=== PATIENT | female | born 1955 | race Two or more races ===

== ENCOUNTER 2021-07-18 21:58 | Emergency (ER) | payer SELFPAY ==
[~2021-07-18] VITALS: Ht 160 cm; Wt 81.6 kg
[2021-07-18 23:19] LABS: Basophils # (auto) 0.1 10 ^3/uL (0-0.2); Basophils % (auto) 0.7 % (0.0-2.0); Eosinophils # (auto) 0.2 10 ^3/uL (0-0.8); Eosinophils % (auto) 1.8 % (0.0-7.0); Hematocrit 40.5 % (36.0-46.0); Hemoglobin 13.5 g/dL (12.2-16.2); Lymphocytes # (auto) 1.5 10 ^3/uL (0.4-5.4); Lymphocytes % (auto) 14.6 % (10.0-50.0); Mean Corpuscular Hemoglobin 28.8 pg (28.0-32.0); Mean Corpuscular Hgb Conc. 33.4 g/dL (32.0-36.0); Mean Corpuscular Volume 86.2 fL (80.0-100.0); Monocytes # (auto) 0.7 10 ^3/uL (0-1.3); Monocytes % (auto) 6.3 % (0.0-12.0); Neutrophils % (auto) 76.6 % (37.0-80.0); Nucleated Red Blood Cells % 0.2 %; Red Cell Distribution Width 13.5 % (11.8-14.3); White Blood Cell 10.4 10^3/uL (4.4-10.8)
[2021-07-18 23:40] LABS: Albumin 3.7 g/dL (3.4-5.0); BUN/Creatinine Ratio 24.2; Calcium 9.5 mg/dL (8.5-10.1)
[2021-07-18 23:43] LABS: Bilirubin, Total 0.5 mg/dL (0.2-1.0)
[2021-07-19 02:00] VITALS: BP 125/50
[2021-07-19 02:42] LABS: Urine Bacteria FEW /hpf (None Seen); Urine Blood Negative /uL (Negative); Urine Mucus FEW (None Seen); Urine Specific Gravity 1.026 (1.001-1.035); Urine WBC 12 /hpf (0 - 5)
[2021-07-19] MEDS ORDERED: cefTRIAXone SOD 1,000 MG VL IM ONE (03:00)
[2021-07-19] MEDS ORDERED: CEFD300C2 PO (03:07)
== END 2021-07-19 03:17 | disposition home or self-care (01) ==
LOC: ER 21:58
DX: R10.84 Generalized abdominal pain (principal); E11.9 Type 2 diabetes mellitus without complications; I10 Essential (primary) hypertension; Z90.710 Acquired absence of both cervix and uterus
CPT/HCPCS: 36415; 80053; 81001; 83690; 85025; 93005; 96372; 99284; J0696